=== PATIENT | female | born 1985 | race American Indian/Alaskan Native ===

== ENCOUNTER 2019-02-11 16:19 | Emergency (ER) | payer OTHER ==
--- NOTE | 2019-02-11 17:28 | Event Note ---
ED Screening Note Date of service: 02/11/19 Time: 16:50 ED Screening Note: reoports sore throat chulls, swollen tonsils. h/o tonsillitis. pain radiating from throat to ears. Reports some cough today but because tonsils are bid. Denies sob Mouth, Moist, uvula midline. positive exy=date , swellinh and resdness to tonsils and orapharynx This initial assessment/diagnostic orders/clinical plan/treatment(s) is/are subject to change based on patients health status, clinical progression and re-assessment by fellow clinical providers in the ED. Further treatment and workup at subsequent clinical providers discretion. Patient/guardian urged not to elope from the ED as their condition may be serious if not clinically assessed and managed. Initial orders include: strep
[2019-02-11] MEDS ORDERED: IBUPROFEN 800 MG TAB PO ONE (19:04)
[2019-02-11] MEDS ORDERED: PENICILLIN G BENZATHINE 1.2 MILLION UNIT/2 ML INJ IM ONE (20:09)
[2019-02-11] MEDS ORDERED: LIDOCAINE VISCOUS 2% 15 ML ORAL LIQD PO ONE (20:09)
[2019-02-11] MEDS ORDERED: dexAMETHasone 20 MG/5 ML VIAL IM ONE (20:09)
--- NOTE | 2019-02-11 20:56 | Emergency Department Report ---
ED General Adult HPI - General Chief complaint: Earache Stated complaint: EAR PAIN/SORE THROAT/DIZZY Time Seen by Provider: 02/11/19 17:22 Source: patient Mode of arrival: Ambulatory Limitations: No Limitations - History of Present Illness Initial comments: Patient is a 33-year-old -[place] female with no past medical history who presents to the ED with complaint of acute onset persistent nasal and sinus congestion, frontal sinus pressure and headache, bilateral ear pain, chills, diffuse body aches and pains, severe sore throat with dysphagia for the last 3 days. Patient states that other people in the family have had similar symptoms. She denies dizziness, chest pain, shortness of breath, abdominal pain, nausea, vomiting, diarrhea, dysuria, urinary frequency and urgency, vaginal bleeding, cough or change in vision. MD Complaint: Sore throat, bilateral ear pain, nasal and sinus congestion with pressure -: Sudden, days(s) (2) Location: mouth Radiation: non-radiation Severity scale (0 -10): 8 Quality: burning, aching, sharp, constant Consistency: constant Improves with: none Worsens with: none Associated Symptoms: denies other symptoms, cough, fever/chills, headaches, loss of appetite, malaise. denies: confusion, chest pain, diaphoresis, nausea/vomiting, rash, seizure, shortness of breath, syncope, weakness Treatments Prior to Arrival: none - Related Data Previous Rx's Medication Instructions Recorded Last Taken Type Sulfamethoxazole/Trimethoprim 1 each PO BID #14 tablet 05/10/15 Unknown Rx [Bactrim DS TAB] Azithromycin [Zithromax Z-JOAN] 250 mg PO DAILY #6 tab 02/11/19 Unknown Rx Fluconazole [Diflucan TAB] 150 mg PO ONCE #1 tablet 02/11/19 Unknown Rx Ibuprofen [Motrin] 800 mg PO Q8HR PRN #24 tablet 02/11/19 Unknown Rx Lidocaine Viscous 2% 10 ml PO Q6H PRN #120 ml 02/11/19 Unknown Rx methylPREDNISolone [Medrol 4MG 4 mg PO DAILY #21 tab.ds.pk 02/11/19 Unknown Rx DOSEPAK (21 tabs)] Allergies Allergy/AdvReac Type Severity Reaction Status Date / Time No Known Allergies Allergy Unverified 05/09/15 18:32 ED Review of Systems ROS: Stated complaint: EAR PAIN/SORE THROAT/DIZZY Other details as noted in HPI Constitutional: denies: chills, fever Eyes: denies: eye pain, eye discharge, vision change ENT: ear pain, throat pain, congestion Respiratory: cough. denies: orthopnea, shortness of breath, SOB with exertion, SOB at rest, wheezing Cardiovascular: denies: chest pain, palpitations Endocrine: no symptoms reported. denies: excessive sweating, flushing, intolerance to cold, increased thirst, increased urine Gastrointestinal: denies: abdominal pain, nausea, vomiting, diarrhea, constipation, hematemesis Genitourinary: denies: urgency, dysuria, discharge Musculoskeletal: arthralgia, myalgia. denies: back pain, joint swelling Skin: denies: rash, lesions Neurological: headache. denies: weakness, paresthesias Psychiatric: denies: anxiety, depression Hematological/Lymphatic: denies: easy bleeding, easy bruising ED Past Medical Hx - Social History Smoking Status: Never Smoker Substance Use Type: None - Medications Home Medications: Home Medications Medication Instructions Recorded Confirmed Last Taken Type Sulfamethoxazole/Trimethoprim 1 each PO BID #14 tablet 05/10/15 Unknown Rx [Bactrim DS TAB] Azithromycin [Zithromax Z-JOAN] 250 mg PO DAILY #6 tab 02/11/19 Unknown Rx Fluconazole [Diflucan TAB] 150 mg PO ONCE #1 tablet 02/11/19 Unknown Rx Ibuprofen [Motrin] 800 mg PO Q8HR PRN #24 tablet 02/11/19 Unknown Rx Lidocaine Viscous 2% 10 ml PO Q6H PRN #120 ml 02/11/19 Unknown Rx methylPREDNISolone [Medrol 4MG 4 mg PO DAILY #21 tab.ds.pk 02/11/19 Unknown Rx DOSEPAK (21 tabs)] ED Physical Exam - General Limitations: No Limitations General appearance: alert, in no apparent distress - Head Head exam: Present: atraumatic, normocephalic, normal inspection - Eye Eye exam: Present: normal appearance, PERRL, EOMI Pupils: Present: normal accommodation - ENT ENT exam: Present: normal exam, mucous membranes moist, TM's normal bilaterally, normal external ear exam, other (Erythematous tonsils and oropharynx with thick white exudates) - Neck Neck exam: Present: normal inspection, full ROM, lymphadenopathy. Absent: tenderness, meningismus, thyromegaly - Respiratory Respiratory exam: Present: normal lung sounds bilaterally. Absent: respiratory distress, wheezes, rhonchi, chest wall tenderness, accessory muscle use, decreased breath sounds, prolonged expiratory - Cardiovascular Cardiovascular Exam: Present: normal rhythm, tachycardia. Absent: systolic murmur, diastolic murmur, rubs, gallop - GI/Abdominal GI/Abdominal exam: Present: soft, normal bowel sounds. Absent: tenderness, guarding, rebound - Extremities Exam Extremities exam: Present: normal inspection, full ROM, normal capillary refill - Back Exam Back exam: Present: normal inspection, full ROM. Absent: CVA tenderness (L), muscle spasm, paraspinal tenderness - Neurological Exam Neurological exam: Present: alert, oriented X3, CN II-XII intact, normal gait, reflexes normal - Psychiatric Psychiatric exam: Present: normal affect, normal mood - Skin Skin exam: Present: warm, dry, intact, normal color. Absent: rash ED Course Vital Signs 02/11/19 17:22 Temperature 99.7 F H Pulse Rate 114 H Respiratory 18 Rate Blood Pressure 136/72 O2 Sat by Pulse 98 Oximetry - Reevaluation(s) Reevaluation #1: 02/11/19 20:57 This is a 33-year-old female who presented to the ED with complaint of severe sore throat, dysphagia, nasal and sinus congestion, bilateral ear pain and headache for the last 3 days. The patient was treated in the ED for pain, also rapid strep test was positive for group A strep. Patient also received Bicillin 1.2 million units intramuscular injection with Decadron and pain medications. B ased on the patient's symptoms and physical exam findings, patient was discharged home on medications and advised to follow-up with her primary care physician in 7-10 days for reevaluation or return to the ED immediately if symptoms get worse. ED Medical Decision Making - Medical Decision Making This is a 33-year-old female who presented to the ED with complaint of severe sore throat, dysphagia, nasal and sinus congestion, bilateral ear pain and headache for the last 3 days. The patient was treated in the ED for pain, also rapid strep test was positive for group A strep. Patient also received Bicillin 1.2 million units intramuscular injection with Decadron and pain medications. Based on the patient's symptoms and physical exam findings, patient was discharged home on medications and advised to follow-up with her primary care physician in 7-10 days for reevaluation or return to the ED immediately if symptoms get worse. - Differential Diagnosis Acute URI; Strep Pharyngitis; Otitis media; sinusitis Critical care attestation.: If time is entered above; I have spent that time in minutes in the direct care of this critically ill patient, excluding procedure time. ED Disposition Clinical Impression: Acute streptococcal pharyngitis, Acute upper respiratory infection Acute frontal sinusitis Qualifiers: Recurrence: non-recurrent Qualified Code(s): J01.10 - Acute frontal sinusitis, unspecified Disposition: TO HOME OR SELFCARE Is pt being admited?: No Does the pt Need Aspirin: No Condition: Stable Instructions: Strep Throat (ED), Tonsillitis (ED), Acute Bacterial Rhinosinusitis (ED) Additional Instructions: Take medications with food, drink plenty of fluids and follow-up with your primary care physician in 5-7 days for reevaluation. Return to the ED immediately if symptoms get worse. Prescriptions: Fluconazole [Diflucan TAB] 150 mg PO ONCE #1 tablet Lidocaine Viscous 2% 10 ml PO Q6H PRN #120 ml PRN Reason: Pain , Severe (7-10) methylPREDNISolone [Medrol 4MG DOSEPAK (21 tabs)] 4 mg PO DAILY #21 tab.ds.pk Ibuprofen [Motrin] 800 mg PO Q8HR PRN #24 tablet PRN Reason: Pain , Severe (7-10) Azithromycin [Zithromax Z-JOAN] 250 mg PO DAILY #6 tab Referrals: ED JOSHI MD [Primary Care Provider] - 3-5 Days Time of Disposition: 21:00 Print Language: ROMANIAN
[2019-02-11 21:56] VITALS: BP 138/92
== END 2019-02-11 21:55 | disposition home or self-care (01) ==
LOC: ED 16:19
DX: J02.0 Streptococcal pharyngitis (principal); J06.9 Acute upper respiratory infection, unspecified; J01.10 Acute frontal sinusitis, unspecified
CPT/HCPCS: 87430; 96372; 99283; J0561; J1100

== ENCOUNTER 2021-12-05 08:14 | Emergency (ER) | payer OTHER ==
[2021-12-05 10:08] VITALS: BP 103/64
[2021-12-05 10:54] LABS: Bacteria,Urine 2+ /HPF (Negative); Mucus,Urine 2+ /HPF
[2021-12-05 11:11] LABS: Color,Urine Yellow (Yellow)
[2021-12-05 11:13] LABS: Bilirubin,Urine Negative (Negative); Blood,Urine Negative (Negative)
[2021-12-05 11:14] LABS: Urobilinogen,Urine < 2.0 mg/dL (<2.0)
[2021-12-05] MEDS ORDERED: ALUM-MAG HYDROXIDE-SIMETHICONE 200-200-20MG/5ML ORAL LIQD 30 ML PO ONE (11:21)
[2021-12-05] MEDS ORDERED: LIDOCAINE VISCOUS 2% 15 ML ORAL LIQD PO ONE (11:21)
[2021-12-05] MEDS ORDERED: HYOSCYAMINE SUBL 0.125 MG TAB SL ONE (11:21)
[2021-12-05 11:26] LABS: Basophils % (Auto) 0.6 % (0.0-1.8); Eosinophils # (Auto) 0.1 K/mm3 (0.0-0.4); Eosinophils % (Auto) 2.4 % (0.0-4.3); Hematocrit 40.9 % (30.3-42.9); Hemoglobin 13.5 gm/dl (10.1-14.3); Lymphocytes # (Auto) 1.4 K/mm3 (1.2-5.4); Lymphocytes % (Auto) 26.2 % (13.4-35.0); Mean Corpuscular HGB Conc 33 % (30-34); Mean Corpuscular Volume 91 fl (79-97); Monocytes # (Auto) 0.4 K/mm3 (0.0-0.8); Monocytes % (Auto) 8.5 % (0.0-7.3); Platelet Count 335 K/mm3 (140-440); Red Blood Count 4.47 M/mm3 (3.65-5.03); Red Cell Distribution Width 13.8 % (13.2-15.2)
--- NOTE | 2021-12-05 11:28 | Emergency Department Report ---
ED Abdominal Pain HPI - General Chief Complaint: Abdominal Pain Stated Complaint: DIARRHEA/ABDOMINAL PAIN Time Seen by Provider: 12/05/21 09:36 Source: patient Mode of arrival: Ambulatory Limitations: No Limitations - History of Present Illness Initial Comments: 36-year-old female with no significant medical history presents with abdominal pain. Describes pain in her upper epigastric area described as tight with fullness, symptoms began about 4 to 5 days. Progressively getting worse. Had 1 vomiting episode today. Symptoms appears to be worse when she eats. She denies diarrhea, no fever, she denies history of prior GI symptoms, no hemoptysis, pain does not radiate to the back or the flank are area, no dysuria, no chest pain, no shortness of breath, no headache dizziness or vision changes. She denies being last menstrual period was about 2 months ago which she states is usually regular. MD Complaint: abdominal pain -: Gradual Location: epigastric Radiation: none Severity: moderate Severity scale (0 -10): 6 Quality: fullness Consistency: constant Improves With: nothing Worsens With: eating Associated Symptoms: nausea, vomiting. denies: diarrhea, fever, constipation, hematemesis, hematochezia - Related Data LMP (females 10-50): 2 months (Irregular) Previous Rx's Medication Instructions Recorded Last Taken Type Sulfamethoxazole/Trimethoprim 1 each PO BID #14 tablet 05/10/15 Unknown Rx [Bactrim DS TAB] Azithromycin [Zithromax Z-JOAN] 250 mg PO DAILY #6 tab 02/11/19 Unknown Rx Fluconazole (Nf) [Diflucan TAB] 150 mg PO ONCE #1 tablet 02/11/19 Unknown Rx Ibuprofen [Motrin] 800 mg PO Q8HR PRN #24 tablet 02/11/19 Unknown Rx Lidocaine Viscous 2% 10 ml PO Q6H PRN #120 ml 02/11/19 Unknown Rx methylPREDNISolone [Medrol 4MG 4 mg PO DAILY #21 tab.ds.pk 02/11/19 Unknown Rx DOSEPAK (21 tabs)] Hyoscyamine Subl [Levsin Sl 0.125 0.125 mg SL Q6HR PRN #12 tab 12/05/21 Unknown Rx TAB] Omeprazole 20 mg PO QHS #30 12/05/21 Unknown Rx Allergies Allergy/AdvReac Type Severity Reaction Status Date / Time No Known Allergies Allergy Unverified 05/09/15 18:32 ED Review of Systems ROS: Stated complaint: DIARRHEA/ABDOMINAL PAIN Other details as noted in HPI Comment: All other systems reviewed and negative Constitutional: no symptoms reported ENT: denies: ear pain, throat pain Respiratory: no symptoms reported, see HPI. denies: cough, orthopnea Cardiovascular: denies: chest pain, palpitations, dyspnea on exertion, syncope Gastrointestinal: abdominal pain, nausea, vomiting. denies: constipation, hematemesis, melena Genitourinary: denies: urgency, dysuria, frequency Musculoskeletal: denies: back pain, joint swelling, arthralgia Skin: denies: rash, lesions Neurological: denies: headache, weakness, numbness, paresthesias ED Past Medical Hx - Past Medical History Previous Medical History?: No - Surgical History Past Surgical History?: No - Social History Smoking Status: Never Smoker Substance Use Type: None - Medications Home Medications: Home Medications Medication Instructions Recorded Confirmed Last Taken Type Sulfamethoxazole/Trimethoprim 1 each PO BID #14 tablet 05/10/15 Unknown Rx [Bactrim DS TAB] Azithromycin [Zithromax Z-JOAN] 250 mg PO DAILY #6 tab 02/11/19 Unknown Rx Fluconazole (Nf) [Diflucan TAB] 150 mg PO ONCE #1 tablet 02/11/19 Unknown Rx Ibuprofen [Motrin] 800 mg PO Q8HR PRN #24 tablet 02/11/19 Unknown Rx Lidocaine Viscous 2% 10 ml PO Q6H PRN #120 ml 02/11/19 Unknown Rx methylPREDNISolone [Medrol 4MG 4 mg PO DAILY #21 tab.ds.pk 02/11/19 Unknown Rx DOSEPAK (21 tabs)] Hyoscyamine Subl [Levsin Sl 0.125 0.125 mg SL Q6HR PRN #12 tab 12/05/21 Unknown Rx TAB] Omeprazole 20 mg PO QHS #30 12/05/21 Unknown Rx ED Physical Exam - General Limitations: No Limitations General appearance: alert, in no apparent distress, obese - Head Head exam: Present: atraumatic - Eye Eye exam: Present: normal appearance - ENT ENT exam: Present: normal exam, normal orophraynx - Neck Neck exam: Present: normal inspection - Respiratory Respiratory exam: Present: normal lung sounds bilaterally. Absent: respiratory distress, wheezes - Cardiovascular Cardiovascular Exam: Present: regular rate, normal rhythm - GI/Abdominal GI/Abdominal exam: Present: soft (No CVA tenderness), tenderness, normal bowel sounds, other (Soft around the large abdomen difficulty palpating structures due to habitus otherwise tender in the epigastric area.). Absent: distended, guarding - Extremities Exam Extremities exam: Present: normal inspection, full ROM. Absent: tenderness (No sleep) ED Course Vital Signs 12/05/21 12/05/21 08:28 10:02 Temperature 98.3 F 98.5 F Pulse Rate 89 89 Respiratory 18 16 Rate Blood Pressure 128/77 103/64 [Left] O2 Sat by Pulse 99 96 Oximetry ED Medical Decision Making - Lab Data Result diagrams: 12/05/21 10:04 12/05/21 10:04 - Medical Decision Making 36-year-old female with no significant medical history presents with abdominal pain. Describes pain in her upper epigastric area described as tight with fullness, symptoms began about 4 to 5 days. Progressively getting worse. Had 1 vomiting episode today. Symptoms appears to be worse when she eats. She denies diarrhea, no fever, she denies history of prior GI symptoms, no hemoptysis, pain does not radiate to the back or the flank are area, no dysuria, no chest pain, no shortness of breath, no headache dizziness or vision changes. She denies being last menstrual period was about 2 months ago which she states is usually regular. Labs are all reassuring, no significant electrolyte abnormalities, no white count, urinalysis also reassuring, no infectious processes, tolerating oral intake without vomiting, ambulating steadily without guarding, no fever, symptoms can be managed outpatient. Have given patient referral for GI, in the meantime prescribe some omeprazole to take every night, dietary management, She understands everything we have discussed including return precautions Critical care attestation.: If time is entered above; I have spent that time in minutes in the direct care of this critically ill patient, excluding procedure time. ED Disposition Clinical Impression: Acute gastritis, Diarrhea Disposition: HOME / SELF CARE / HOMELESS Is pt being admited?: No Does the pt Need Aspirin: No Condition: Stable Instructions: Gastritis, Adult, [id number], Food Choices to Help Relieve Diarrhea, Adult, Abdominal Pain (ED) Prescriptions: Omeprazole 20 mg PO QHS #30 Hyoscyamine Subl [Levsin Sl 0.125 TAB] 0.125 mg SL Q6HR PRN #12 tab PRN Reason: abdominal pain Referrals: PRIMARY CARE, [Primary Care Provider] - 3-5 Days [facility] [Provider Group] - 3-5 Days
[2021-12-05 11:51] LABS: Alanine Aminotransferase 17 units/L (7-56); Blood Urea Nitrogen 8 mg/dL (7-17); Calcium 8.5 mg/dL (8.4-10.2); Hemolysis Index 6
[2021-12-05 11:52] LABS: BUN/Creatinine Ratio 13
== END 2021-12-05 13:00 | disposition home or self-care (01) ==
LOC: ED 08:14
DX: K29.70 Gastritis, unspecified, without bleeding (principal); R19.7 Diarrhea, unspecified
CPT/HCPCS: 36415; 80053; 81001; 83690; 84703; 85025; 99283